=== PATIENT | male | born 1995 | race African-American/Black ===

== ENCOUNTER 2021-01-27 00:37 | Emergency (ER) | payer MEDICAID ==
[~2021-01-27] VITALS: Ht 188 cm; Wt 81.8 kg
[~2021-01-27 00:37] MED LIST: IBUP-1572 PO; NO HOME MEDS
[2021-01-27 00:40] VITALS: BP 137/86
== END 2021-01-27 01:05 | disposition home or self-care (01) ==
LOC: ER 00:37
DX: Z04.1 Encounter for examination and observation following transport accident (principal); Z79.899 Other long term (current) drug therapy; V98.8XXA Other specified transport accidents, initial encounter; Y93.89 Activity, other specified; Y92.89 Other specified places as the place of occurrence of the external cause; Y99.8 Other external cause status
CPT/HCPCS: 99283